=== PATIENT | male | born 1970 | race Caucasian/White ===

== ENCOUNTER 2022-10-08 17:57 | Inpatient (IN) | payer SELFPAY ==
[2022-10-08] MEDS ORDERED: levETIRAcetam in NS 1,500 MG in Premix Bag 1 BAG IVPB SCH (21:00)
[2022-10-08] MEDS ORDERED: Ondansetron PF 4 MG/2 ML Vial IVP PRN (22:16)
[2022-10-08] MEDS ORDERED: Lorazepam 2 MG/ML VIAL SLOW IVP PRN (22:16)
[2022-10-08] MEDS ORDERED: Ondansetron ODT 4 MG TAB PO PRN ×2 (22:16→22:40)
[2022-10-08] MEDS ORDERED: Lorazepam 2 MG/ML VIAL IM PRN (22:40)
[2022-10-08] MEDS ORDERED: Lorazepam 1 MG TAB PO PRN (22:40)
[2022-10-08] MEDS ORDERED: Electrolyte Replacement Protocol 1 EACH FS SCH (22:45)
[2022-10-08 23:06] VITALS: BMI 29.7
[2022-10-08 23:44] LABS: #Eosinphils 0.1 thou/uL (0.0-0.7); #Monocytes 1.1 thou/uL (0.11-0.59); #Neutrophils 8.4 thou/uL (1.40-6.50); %Basophils 0.4 % (0.0-1.0); %Eosinophils 1.2 % (0.0-10.0); %Lymphocytes 17.5 % (21.0-51.0); %Monocytes 9.2 % (0.0-10.0); %Neutrophils 71.8 % (42.0-75.0); Hemoglobin 13.7 g/dL (14.0-18.0); Mean Corpuscular HGB CONC 33.9 g/dL (32.0-36.0); Mean Corpuscular Volume 94.2 fl (78.0-98.0); Mean Platelet Volume 7.8 fL (7.4-10.4); Platelet Count 248 10x3/uL (130-400); RBC Distribution Width 12.3 % (11.5-14.5); Red Blood Cell (RBC) Count 4.29 mill/uL (4.70-6.10); White Blood Cell (WBC) Count 11.6 10x3/uL (4.8-10.8)
[2022-10-08 23:50] LABS: Magnesium 2.6 mg/dL (1.6-2.6)
[2022-10-08 23:54] LABS: Anion Gap 16 mmol/L (10-20); BUN (Urea Nitrogen) 16 mg/dL (8.9-20.6); Calc. Creatinine Clearance 111 mL/min (70-130); Carbon Dioxide 17 mmol/L (22-29); Chloride 109 mmol/L (98-107); Potassium 3.1 mmol/L (3.5-5.1); Sodium 139 mmol/L (136-145)
[2022-10-08 23:55] LABS: ALT (SGPT) 42 U/L (8-55); AST (SGOT) 50 U/L (5-34); Albumin 4.2 g/dL (3.5-5.0); Alkaline Phosphatase 66 U/L (40-110); Bilirubin, Total 2.1 mg/dL (0.2-1.2); Calcium 8.8 mg/dL (7.8-10.44); Estimated GFR 95; Globulin 2.4 g/dL (2.4-3.5); Glucose 85 mg/dL (70-105); Protein, Total 6.6 g/dL (6.0-8.3)
[2022-10-09] MEDS ORDERED: levETIRAcetam 500 MG/5 ML VIAL SLOW IVP SCH ×2 (00:30→09:00)
[2022-10-09] MEDS: Lidocaine Viscous Sol 2% 15 ml UD Cup SSP SCH ×11 (00:35→20:09)
[2022-10-09] MEDS ORDERED: Lactated Ringer's 1,000 ML IV SCH (00:45)
[2022-10-09] MEDS: Potassium Chloride 20 MEQ in Premix Bag 1 BAG IVPB SCH ×2 (02:01→04:43)
[2022-10-09 07:17] LABS: SARS-CoV-2 NAA Rapid Test Not Detected (NotDetected)
[2022-10-09] MEDS ORDERED: Potassium Chloride 20 MEQ TAB PO SCH (08:30)
[2022-10-09] MEDS ORDERED: clonazePAM 0.5 MG TAB PO SCH (09:00)
[2022-10-09] MEDS ORDERED: ALPRAZolam 1 MG TAB PO SCH (09:00)
[2022-10-09] MEDS: Multivit, Therapeutic 1 TAB PO SCH (09:42)
[2022-10-09] MEDS ORDERED: levETIRAcetam 500 MG TAB PO SCH (10:30)
[2022-10-09] MEDS: levETIRAcetam 500 MG TAB PO SCH (20:09)
[2022-10-09] MEDS: Acetaminophen 325 MG TAB PO PRN (20:10)
[2022-10-09] MEDS ORDERED: Lorazepam 1 MG TAB PO PRN (22:40)
[2022-10-10] MEDS: Lidocaine Viscous Sol 2% 15 ml UD Cup SSP SCH ×7 (01:31→17:25)
[2022-10-10] MEDS: levETIRAcetam 500 MG TAB PO SCH (08:34)
[2022-10-10] MEDS: Multivit, Therapeutic 1 TAB PO SCH (08:34)
[2022-10-10] MEDS: Acetaminophen 325 MG TAB PO PRN (08:37)
[2022-10-10] MEDS ORDERED: ALPRAZolam 0.5 MG TAB PO SCH (18:15)
[2022-10-10 20:23] VITALS: BP 115/67; TEMP 97.9
[2022-10-10] MEDS ORDERED: Lorazepam 1 MG TAB PO PRN (22:40)
[2022-10-11] MEDS ORDERED: Lorazepam 0.5 MG TAB PO PRN (22:40)
== END 2022-10-10 22:08 | disposition home or self-care (01) | DRG 101 ==
LOC: NEURO 19:37
PROVIDERS: ADMIT Hospitalist; ATTEND Internal Medicine
DX: R56.9 Unspecified convulsions (principal); F13.239 Sedative, hypnotic or anxiolytic dependence with withdrawal, unspecified; Z20.822 Contact with and (suspected) exposure to COVID-19; E87.6 Hypokalemia; F10.20 Alcohol dependence, uncomplicated; F14.10 Cocaine abuse, uncomplicated; T42.4X5A Adverse effect of benzodiazepines, initial encounter; K76.0 Fatty (change of) liver, not elsewhere classified; Z79.899 Other long term (current) drug therapy
CPT/HCPCS: 36415; 70553; 76705; 82140; 83735; 84100; 84443; 93005; 93010; 95816; 95819; 95957; J1953; J3480; J7120